=== PATIENT | female | born 1950 | race Hispanic/Latino ===

== ENCOUNTER → 2024-08-16 | Outpatient (CLI) | payer MEDICARE | END | disposition home or self-care (01) | LOC: SHCH 15:17 | PROVIDERS: ATTEND Internal Medicine Cardiovascular Disease | DX: I10 Essential (primary) hypertension (principal) | CPT/HCPCS: 93306 ==

== ENCOUNTER → 2024-08-30 | Outpatient (CLI) | payer MEDICARE | END | disposition home or self-care (01) | LOC: EDUNIT# 15:30 → SHCH 15:31 | PROVIDERS: ATTEND Internal Medicine Cardiovascular Disease | DX: R09.89 Other specified symptoms and signs involving the circulatory and respiratory systems (principal) | CPT/HCPCS: 93880 ==

== ENCOUNTER → 2024-09-13 | Outpatient (CLI) | payer OTHER | END | disposition home or self-care (01) | LOC: RAH 15:40 | PROVIDERS: ATTEND Internal Medicine Cardiovascular Disease | DX: Z13.6 Encounter for screening for cardiovascular disorders (principal); I25.10 Atherosclerotic heart disease of native coronary artery without angina pectoris | CPT/HCPCS: 75571 ==